=== PATIENT | male | born 1970 | race Caucasian/White ===

== ENCOUNTER 2017-04-13 12:40 | Emergency (ER) | payer MEDICARE, OTHER ==
[~2017-04-13] VITALS: Ht 175.3 cm; Wt 85.9 kg
[~2017-04-13 12:40] MED LIST: CLOZ200T PO; CLOZ25TA4 PO; DIPH50CA4 PO; FLUP10TA2 PO; HALO50VI4 IM; TRAZ150T79 PO; ZOLP10TA7 PO
[2017-04-13 12:58] LABS: GLUCOSE,POINT OF CARE 94 MG/DL (70-110)
[2017-04-13] MEDS ORDERED: PALI546S IM (13:37)
[2017-04-13] MEDS ORDERED: LISI-661 PO (13:37)
[2017-04-13] MEDS ORDERED: METF500T4 PO (13:37)
[2017-04-13] MEDS ORDERED: CLON.2 PO (13:37)
[2017-04-13] MEDS ORDERED: [UNRECOGNIZED DRUG - CODE] PO (13:37)
[2017-04-13] MEDS ORDERED: OMEG-135 PO (13:37)
[2017-04-13] MEDS ORDERED: METO-558 PO (13:37)
[2017-04-13] MEDS ORDERED: VARE1TAB22 PO (13:37)
[2017-04-13 14:26] LABS: BASOPHILS % (AUTO) 0.3 % (0.0-2.0); EOSINOPHILS % (AUTO) 0 % (1.0-6.0); HEMOGLOBIN 13.4 g/dL (13.5-17.5); LYMPHOCYTES # (AUTO) 1.8 K/uL (1.0-4.8); LYMPHOCYTES % (AUTO) 12.6 % (22.0-44.0); MEAN CORPUSCULAR HEMOGLOBIN 30.8 pg (26.0-34.0); MEAN CORPUSCULAR HGB CONC 34.3 G/dL (31.0-37.0); MEAN CORPUSCULAR VOLUME 90 fL (80-100); MONOCYTES # (AUTO) 1.2 K/uL (0.1-1.0); MONOCYTES % (AUTO) 8.8 % (2.0-9.0); NEUTROPHILS % (AUTO) 78.3 % (40.0-70.0); PLATELET COUNT (AUTO) 335 K/uL (150-450); RED BLOOD CELL COUNT(AUTO) 4.34 MIL/uL (4.50-5.90); RED CELL DISTRIBUTION WIDTH 13.9 % (11.5-14.5)
[2017-04-13 14:34] LABS: ANION GAP 12 mmol/L (8-16); CALCIUM, TOTAL 9.3 mg/dL (8.8-10.5); CARBON DIOXIDE 25 mmol/L (22-29); CHLORIDE 102 mmol/L (98-107); CREATININE 0.75 mg/dL (0.60-1.30); GLOMERULAR FILTR. RATE CALC > 60 mL/min (>60); GLUCOSE,RANDOM 99 mg/dL (70-110); POTASSIUM 3.6 mmol/L (3.5-5.1); SODIUM SERUM 139 mmol/L (136-145); UREA NITROGEN, BLOOD 17 mg/dL (7-18)
[2017-04-13 14:40] LABS: ALANINE AMINOTRANSFERASE 30 U/L (12-78); ALBUMIN 3.9 g/dL (3.4-5.0); ALKALINE PHOSPHATASE 87 U/L (46-116); ASPARTATE AMINOTRANSFERASE 24 U/L (15-37); BILIRUBIN,TOTAL 0.8 mg/dL (0.1-1.0); TOTAL PROTEIN, SERUM 7.1 g/dL (6.4-8.2)
[2017-04-13] MEDS ORDERED: HALOPERIDOL 5 MG TABLET PO ONE (15:00)
[2017-04-13] MEDS ORDERED: LORazepam 2 MG TABLET PO ONE (15:00)
[2017-04-13 16:27] VITALS: BP 132/90
[2017-04-13 17:39] LABS: AMPHET/METH SCREEN,URINE NEGATIVE (NEGATIVE); BARBITURATE SCREEN, URINE NEGATIVE (NEGATIVE); BENZODIAZEPINES SCREEN,URINE NEGATIVE (NEGATIVE); CANNABINOID SCREEN,URINE NEGATIVE (NEGATIVE); COCAINE SCREEN,URINE NEGATIVE (NEGATIVE); METHADONE SCREEN, URINE NEGATIVE (NEGATIVE); OPIATE SCREEN,URINE NEGATIVE (NEGATIVE)
[2017-04-13 17:41] LABS: PHENCYCLIDINE SCREEN,URINE NEGATIVE (NEGATIVE)
== END 2017-04-13 18:12 | disposition home or self-care (01) ==
LOC: EMS 12:41
DX: F41.9 Anxiety disorder, unspecified (principal); F90.9 Attention-deficit hyperactivity disorder, unspecified type; F20.9 Schizophrenia, unspecified; E11.9 Type 2 diabetes mellitus without complications; I10 Essential (primary) hypertension
CPT/HCPCS: 36415; 80053; 80307; 82962; 85025; 99284; G0480

== ENCOUNTER 2017-04-14 11:37 | Inpatient (IN) | payer MEDICARE, MEDICAID ==
[~2017-04-14] VITALS: Ht 170.2 cm; Wt 79.8 kg
[~2017-04-14 11:37] MED LIST changes: +CLON.2 PO; +LISI-661 PO; +METF500T4 PO; +METO-558 PO; +OMEG-135 PO; +PALI546S IM; +VARE1TAB22 PO; +[UNRECOGNIZED DRUG - CODE] PO
[2017-04-14 12:32] LABS: BASOPHILS % (AUTO) 0.2 % (0.0-2.0); EOSINOPHILS % (AUTO) 0 % (1.0-6.0); HEMATOCRIT 40.9 % (41-53); HEMOGLOBIN 13.9 g/dL (13.5-17.5); LYMPHOCYTES # (AUTO) 1.4 K/uL (1.0-4.8); LYMPHOCYTES % (AUTO) 7.4 % (22.0-44.0); MEAN CORPUSCULAR HEMOGLOBIN 30.7 pg (26.0-34.0); MEAN CORPUSCULAR HGB CONC 33.9 G/dL (31.0-37.0); MEAN CORPUSCULAR VOLUME 90 fL (80-100); MONOCYTES # (AUTO) 1.1 K/uL (0.1-1.0); MONOCYTES % (AUTO) 5.8 % (2.0-9.0); NEUTROPHILS # (AUTO) 16.8 K/uL (1.8-7.7); NEUTROPHILS % (AUTO) 86.6 % (40.0-70.0); PLATELET COUNT (AUTO) 384 K/uL (150-450); RED BLOOD CELL COUNT(AUTO) 4.53 MIL/uL (4.50-5.90)
[2017-04-14 12:38] LABS: ANION GAP 12 mmol/L (8-16); CALCIUM, TOTAL 9.5 mg/dL (8.8-10.5); CARBON DIOXIDE 25 mmol/L (22-29); CHLORIDE 102 mmol/L (98-107); CREATININE 0.91 mg/dL (0.60-1.30); GLOMERULAR FILTR. RATE CALC > 60 mL/min (>60); GLUCOSE,RANDOM 127 mg/dL (70-110); POTASSIUM 3.9 mmol/L (3.5-5.1); SODIUM SERUM 139 mmol/L (136-145); UREA NITROGEN, BLOOD 26 mg/dL (7-18)
[2017-04-14 12:38] LABS: GLUCOSE,POINT OF CARE 112 MG/DL (70-110)
[2017-04-14 12:45] LABS: ALANINE AMINOTRANSFERASE 30 U/L (12-78); ALBUMIN 4.2 g/dL (3.4-5.0); ALKALINE PHOSPHATASE 94 U/L (46-116); ASPARTATE AMINOTRANSFERASE 22 U/L (15-37); BILIRUBIN,TOTAL 0.8 mg/dL (0.1-1.0); TOTAL PROTEIN, SERUM 7.8 g/dL (6.4-8.2)
[2017-04-14 15:52] LABS: AMPHET/METH SCREEN,URINE NEGATIVE (NEGATIVE); BARBITURATE SCREEN, URINE NEGATIVE (NEGATIVE); BENZODIAZEPINES SCREEN,URINE NEGATIVE (NEGATIVE); CANNABINOID SCREEN,URINE NEGATIVE (NEGATIVE); COCAINE SCREEN,URINE NEGATIVE (NEGATIVE); METHADONE SCREEN, URINE NEGATIVE (NEGATIVE); OPIATE SCREEN,URINE NEGATIVE (NEGATIVE)
[2017-04-14 15:58] LABS: PHENCYCLIDINE SCREEN,URINE NEGATIVE (NEGATIVE)
[2017-04-14 17:19] LABS: APPEARANCE,URINE CLEAR (CLEAR); GLUCOSE, URINE (UA) NEGATIVE (NEGATIVE); KETONES,URINE 40 mg/dL (NEGATIVE); LEUKOCYTE ESTERASE ,URINE NEGATIVE (NEGATIVE); NITRATE,URINE NEGATIVE (NEGATIVE); OCCULT BLOOD,URINE NEGATIVE (NEGATIVE); PROTEIN,URINE TRACE (NEGATIVE)
[2017-04-14 17:21] LABS: BILIRUBIN,URINE PRELIM. POSITIVE (NEGATIVE)
[2017-04-14] MEDS ORDERED: CefTRIAXone SODIUM 2 GM in DEXTROSE 5%-WATER 20 ML IV ONE (17:45)
[2017-04-14] MEDS ORDERED: SODIUM CHLORIDE 0.9% 1,000 ML IV ONE (17:45)
[2017-04-14 21:01] VITALS: BP 134/85
[2017-04-14] MEDS ORDERED: IBUPROFEN 600 MG TABLET PO PRN (21:45)
[2017-04-14] MEDS: CloZAPine 100 MG TABLET PO SCH (22:36)
[2017-04-14] MEDS: DiphenhydrAMINE HCL 25 MG CAPSULE PO SCH (22:36)
[2017-04-14] MEDS: TraZODone HCL 100 MG TABLET PO SCH (22:36)
[2017-04-14] MEDS ORDERED: INFLUENZA VIRUS VACCINE QVS 2017-18 (3YR+)/PF 60 MCG/0.5 ML SYRINGE IM ONE (22:45)
[2017-04-14] MEDS ORDERED: PNEUMOCOCCAL VACCINE POLYVALENT 0.5 ML VIAL [PPSV23] IM ONE (22:45)
[2017-04-15] MEDS ORDERED: GLUCAGON,HUMAN RECOMBINANT 1 MG VIAL IM PRN (05:00)
[2017-04-15 06:22] LABS: GLUCOMETER DEV NAME(LOC) BV2S; GLUCOSE,POINT OF CARE 127 MG/DL (70-110)
[2017-04-15 06:38] VITALS: BP 128/78
[2017-04-15] MEDS: MetFORMIN HCL 500 MG TABLET PO SCH ×2 (07:03→16:47)
[2017-04-15] MEDS: LISINOPRIL 10 MG TABLET PO SCH (08:10)
[2017-04-15] MEDS: OMEGA-3/DHA/EPA/FISH OIL 1,000 MG CAPSULE PO SCH (08:10)
[2017-04-15] MEDS: METOPROLOL SUCCINATE 50 MG ER TABLET PO SCH (08:10)
[2017-04-15] MEDS: NICOTINE 21 MG/24 HOUR PATCH TD SCH (08:11)
[2017-04-15 08:27] LABS: BASOPHILS % (AUTO) 0.3 % (0.0-2.0); EOSINOPHILS % (AUTO) 0.1 % (1.0-6.0); HEMATOCRIT 40.5 % (41-53); HEMOGLOBIN 13.8 g/dL (13.5-17.5); LYMPHOCYTES # (AUTO) 1.6 K/uL (1.0-4.8); LYMPHOCYTES % (AUTO) 15.7 % (22.0-44.0); MEAN CORPUSCULAR HGB CONC 34.2 G/dL (31.0-37.0); MEAN CORPUSCULAR VOLUME 91 fL (80-100); MONOCYTES # (AUTO) 0.8 K/uL (0.1-1.0); MONOCYTES % (AUTO) 8.3 % (2.0-9.0); NEUTROPHILS # (AUTO) 7.5 K/uL (1.8-7.7); NEUTROPHILS % (AUTO) 75.6 % (40.0-70.0); PLATELET COUNT (AUTO) 343 K/uL (150-450); RED BLOOD CELL COUNT(AUTO) 4.47 MIL/uL (4.50-5.90); RED CELL DISTRIBUTION WIDTH 13.9 % (11.5-14.5)
[2017-04-15 08:28] LABS: HEMOGLOBIN A1C 5.5 % (4.5-6.2)
[2017-04-15 08:34] LABS: FREE T4 (FREE THYROXINE) 1.55 ng/dL (0.76-1.46); THYROID STIMULATING HORMONE 1.22 uIU/mL (0.36-3.74)
[2017-04-15] MEDS ORDERED: PALIPERIDONE PALMITATE 234 MG/1.5 ML SYRINGE IM ONE (09:00)
[2017-04-15 11:46] VITALS: BP 110/60
[2017-04-15 16:06] VITALS: BP 124/83
[2017-04-15 16:27] LABS: GLUCOMETER DEV NAME(LOC) BV2S; GLUCOSE,POINT OF CARE 155 MG/DL (70-110)
[2017-04-15] MEDS: INSULIN ASPART 100 UNITS/ML SQ PRN (16:56)
[2017-04-15] MEDS: DiphenhydrAMINE HCL 25 MG CAPSULE PO SCH (20:31)
[2017-04-15] MEDS: CloZAPine 100 MG TABLET PO SCH (20:31)
[2017-04-15] MEDS: TraZODone HCL 100 MG TABLET PO SCH (20:31)
[2017-04-15] MEDS: ZOLPIDEM TARTRATE 10 MG TABLET PO PRN (22:15)
[2017-04-16 03:05] VITALS: BP 125/89
[2017-04-16] MEDS: LORazepam 2 MG TABLET PO PRN (03:09)
[2017-04-16 07:03] LABS: GLUCOMETER DEV NAME(LOC) BV2S; GLUCOSE,POINT OF CARE 110 MG/DL (70-110)
[2017-04-16] MEDS: MetFORMIN HCL 500 MG TABLET PO SCH ×2 (07:05→16:42)
[2017-04-16 08:09] VITALS: BP 140/70
[2017-04-16] MEDS: NICOTINE 21 MG/24 HOUR PATCH TD SCH (08:28)
[2017-04-16] MEDS: METOPROLOL SUCCINATE 50 MG ER TABLET PO SCH (08:28)
[2017-04-16] MEDS: LISINOPRIL 10 MG TABLET PO SCH (08:28)
[2017-04-16] MEDS: OMEGA-3/DHA/EPA/FISH OIL 1,000 MG CAPSULE PO SCH (08:32)
[2017-04-16] MEDS ORDERED: HALOPERIDOL LACTATE 5 MG/ML VIAL IM ONE (11:00)
[2017-04-16] MEDS ORDERED: LORazepam 2 MG/ML VIAL IM ONE (11:00)
[2017-04-16] MEDS ORDERED: DiphenhydrAMINE HCL 50 MG/ML VIAL IM ONE (11:00)
[2017-04-16 13:30] VITALS: BP 112/82
[2017-04-16 16:13] VITALS: BP 112/75
[2017-04-16 16:23] LABS: GLUCOMETER DEV NAME(LOC) BV2S; GLUCOSE,POINT OF CARE 143 MG/DL (70-110)
[2017-04-16] MEDS: CloZAPine 25 MG TABLET PO SCH (16:35)
[2017-04-16] MEDS: INSULIN ASPART 100 UNITS/ML SQ PRN (16:35)
[2017-04-16] MEDS: CloZAPine 100 MG TABLET PO SCH (20:31)
[2017-04-16] MEDS: DiphenhydrAMINE HCL 25 MG CAPSULE PO SCH (20:31)
[2017-04-16] MEDS: TraZODone HCL 100 MG TABLET PO SCH (20:31)
[2017-04-16] MEDS: ZOLPIDEM TARTRATE 10 MG TABLET PO PRN (21:37)
[2017-04-17] MEDS: LORazepam 2 MG TABLET PO PRN ×2 (00:55→10:37)
[2017-04-17] MEDS: HALOPERIDOL 5 MG TABLET PO PRN (01:04)
[2017-04-17] MEDS ORDERED: LORazepam 2 MG/ML VIAL ONE (01:26)
[2017-04-17] MEDS ORDERED: DiphenhydrAMINE HCL 50 MG/ML VIAL ONE (01:26)
[2017-04-17 01:30] VITALS: BP 140/89
[2017-04-17] MEDS ORDERED: DiphenhydrAMINE HCL 50 MG/ML VIAL IM ONE (01:30)
[2017-04-17] MEDS ORDERED: LORazepam 2 MG/ML VIAL IM ONE (01:30)
[2017-04-17] MEDS ORDERED: HALOPERIDOL LACTATE 5 MG/ML VIAL IM ONE (01:30)
[2017-04-17 02:30] VITALS: BP 121/73
[2017-04-17] MEDS: MetFORMIN HCL 500 MG TABLET PO SCH (07:00)
[2017-04-17 07:02] LABS: GLUCOMETER DEV NAME(LOC) BV2S; GLUCOSE,POINT OF CARE 116 MG/DL (70-110)
[2017-04-17 08:14] VITALS: BP 129/94
[2017-04-17] MEDS: LISINOPRIL 10 MG TABLET PO SCH (09:13)
[2017-04-17] MEDS: METOPROLOL SUCCINATE 50 MG ER TABLET PO SCH (09:13)
[2017-04-17] MEDS: OMEGA-3/DHA/EPA/FISH OIL 1,000 MG CAPSULE PO SCH (09:13)
[2017-04-17] MEDS: CloZAPine 25 MG TABLET PO SCH ×2 (09:13→16:35)
[2017-04-17] MEDS: NICOTINE 21 MG/24 HOUR PATCH TD SCH (09:14)
[2017-04-17 16:22] VITALS: BP 122/83
[2017-04-17 16:22] LABS: GLUCOMETER DEV NAME(LOC) BV2S; GLUCOSE,POINT OF CARE 132 MG/DL (70-110)
[2017-04-17] MEDS: CloZAPine 100 MG TABLET PO SCH (20:30)
[2017-04-17] MEDS: DiphenhydrAMINE HCL 25 MG CAPSULE PO SCH (20:30)
[2017-04-17] MEDS: TraZODone HCL 100 MG TABLET PO SCH (20:30)
[2017-04-17] MEDS: ZOLPIDEM TARTRATE 10 MG TABLET PO PRN (21:08)
[2017-04-18 06:41] VITALS: BP 104/72
[2017-04-18 06:53] LABS: GLUCOMETER DEV NAME(LOC) BV2S; GLUCOSE,POINT OF CARE 127 MG/DL (70-110)
[2017-04-18] MEDS: MetFORMIN HCL 500 MG TABLET PO SCH (07:02)
[2017-04-18 08:37] LABS: BASOPHILS % (AUTO) 0.6 % (0.0-2.0); EOSINOPHILS % (AUTO) 0.1 % (1.0-6.0); HEMATOCRIT 38.7 % (41-53); HEMOGLOBIN 13.3 g/dL (13.5-17.5); LYMPHOCYTES # (AUTO) 1.3 K/uL (1.0-4.8); LYMPHOCYTES % (AUTO) 15.9 % (22.0-44.0); MEAN CORPUSCULAR HGB CONC 34.2 G/dL (31.0-37.0); MEAN CORPUSCULAR VOLUME 91 fL (80-100); MONOCYTES # (AUTO) 0.7 K/uL (0.1-1.0); MONOCYTES % (AUTO) 8.7 % (2.0-9.0); NEUTROPHILS % (AUTO) 74.7 % (40.0-70.0); PLATELET COUNT (AUTO) 319 K/uL (150-450); RED BLOOD CELL COUNT(AUTO) 4.27 MIL/uL (4.50-5.90); RED CELL DISTRIBUTION WIDTH 13.7 % (11.5-14.5)
[2017-04-18 08:45] VITALS: BP 132/80
[2017-04-18] MEDS: NICOTINE 21 MG/24 HOUR PATCH TD SCH (08:47)
[2017-04-18] MEDS: LISINOPRIL 10 MG TABLET PO SCH (08:47)
[2017-04-18] MEDS: METOPROLOL SUCCINATE 50 MG ER TABLET PO SCH (08:47)
[2017-04-18] MEDS: OMEGA-3/DHA/EPA/FISH OIL 1,000 MG CAPSULE PO SCH (08:47)
[2017-04-18] MEDS: CloZAPine 25 MG TABLET PO SCH ×2 (08:47→16:36)
[2017-04-18 09:16] LABS: ALANINE AMINOTRANSFERASE 45 U/L (12-78); ALBUMIN 3.7 g/dL (3.4-5.0); ALKALINE PHOSPHATASE 84 U/L (46-116); ANION GAP 9 mmol/L (8-16); ASPARTATE AMINOTRANSFERASE 47 U/L (15-37); BILIRUBIN,TOTAL 0.6 mg/dL (0.1-1.0); CALCIUM, TOTAL 9.1 mg/dL (8.8-10.5); CARBON DIOXIDE 28 mmol/L (22-29); CHLORIDE 102 mmol/L (98-107); CREATINE KINASE MB 3.3 ng/mL (0-5); CREATINE KINASE, TOTAL 813 U/L (39-308); CREATININE 0.76 mg/dL (0.60-1.30); FREE T4 (FREE THYROXINE) 1.57 ng/dL (0.76-1.46); GLOMERULAR FILTR. RATE CALC > 60 mL/min (>60); GLUCOSE,RANDOM 124 mg/dL (70-110); POTASSIUM 4.1 mmol/L (3.5-5.1); SODIUM SERUM 139 mmol/L (136-145); THYROID STIMULATING HORMONE 1.33 uIU/mL (0.36-3.74); TOTAL PROTEIN, SERUM 7.1 g/dL (6.4-8.2); UREA NITROGEN, BLOOD 19 mg/dL (7-18)
[2017-04-18 09:57] LABS: FOLATE SERUM 8.1 ng/mL (5.4-)
[2017-04-18 11:59] VITALS: BP 124/78
[2017-04-18] MEDS: ACETAMINOPHEN 325 MG TABLET PO PRN (11:59)
[2017-04-18] MEDS: LORazepam 2 MG TABLET PO PRN (14:49)
[2017-04-18 16:17] VITALS: BP 115/60
[2017-04-18 16:27] LABS: GLUCOMETER DEV NAME(LOC) BV2S; GLUCOSE,POINT OF CARE 109 MG/DL (70-110)
[2017-04-18] MEDS: TraZODone HCL 100 MG TABLET PO SCH (20:33)
[2017-04-18] MEDS: DiphenhydrAMINE HCL 25 MG CAPSULE PO SCH (20:33)
[2017-04-18] MEDS: CloZAPine 100 MG TABLET PO SCH (20:33)
[2017-04-19 06:10] VITALS: BP 120/64
[2017-04-19 06:28] LABS: GLUCOMETER DEV NAME(LOC) BV2S; GLUCOSE,POINT OF CARE 110 MG/DL (70-110)
[2017-04-19] MEDS: MetFORMIN HCL 500 MG TABLET PO SCH (07:12)
[2017-04-19 08:22] VITALS: BP 124/71
[2017-04-19] MEDS: LISINOPRIL 10 MG TABLET PO SCH (08:38)
[2017-04-19] MEDS: CloZAPine 25 MG TABLET PO SCH ×2 (08:38→16:31)
[2017-04-19] MEDS: METOPROLOL SUCCINATE 50 MG ER TABLET PO SCH (08:39)
[2017-04-19] MEDS: OMEGA-3/DHA/EPA/FISH OIL 1,000 MG CAPSULE PO SCH (08:39)
[2017-04-19] MEDS: LITHIUM CARBONATE 300 MG CAPSULE PO SCH ×2 (08:39→16:29)
[2017-04-19] MEDS: NICOTINE 21 MG/24 HOUR PATCH TD SCH (08:39)
[2017-04-19] MEDS: LORazepam 2 MG TABLET PO PRN (11:21)
[2017-04-19] MEDS: HALOPERIDOL 5 MG TABLET PO PRN (11:21)
[2017-04-19 16:05] VITALS: BP 119/74
[2017-04-19 16:48] LABS: GLUCOMETER DEV NAME(LOC) BV2S; GLUCOSE,POINT OF CARE 118 MG/DL (70-110)
[2017-04-19] MEDS: CloZAPine 100 MG TABLET PO SCH (20:30)
[2017-04-19] MEDS: DiphenhydrAMINE HCL 25 MG CAPSULE PO SCH (20:31)
[2017-04-19] MEDS: TraZODone HCL 100 MG TABLET PO SCH (20:31)
[2017-04-20 00:19] VITALS: BP 123/78
[2017-04-20] MEDS: LORazepam 2 MG TABLET PO PRN ×3 (00:20→12:17)
[2017-04-20] MEDS: HALOPERIDOL 5 MG TABLET PO PRN ×3 (00:20→12:17)
[2017-04-20] MEDS: ZOLPIDEM TARTRATE 10 MG TABLET PO PRN (00:20)
[2017-04-20] MEDS: MetFORMIN HCL 500 MG TABLET PO SCH (06:44)
[2017-04-20 06:58] LABS: GLUCOMETER DEV NAME(LOC) BV2S; GLUCOSE,POINT OF CARE 116 MG/DL (70-110)
[2017-04-20 08:34] VITALS: BP 107/74
[2017-04-20] MEDS: LISINOPRIL 10 MG TABLET PO SCH (09:07)
[2017-04-20] MEDS: NICOTINE 21 MG/24 HOUR PATCH TD SCH (09:08)
[2017-04-20] MEDS: METOPROLOL SUCCINATE 50 MG ER TABLET PO SCH (09:08)
[2017-04-20] MEDS: CloZAPine 25 MG TABLET PO SCH ×2 (09:08→16:36)
[2017-04-20] MEDS: LITHIUM CARBONATE 300 MG CAPSULE PO SCH ×2 (09:08→16:36)
[2017-04-20] MEDS: OMEGA-3/DHA/EPA/FISH OIL 1,000 MG CAPSULE PO SCH (09:08)
[2017-04-20 16:21] VITALS: BP 136/94
[2017-04-20 17:23] LABS: GLUCOMETER DEV NAME(LOC) BV2S; GLUCOSE,POINT OF CARE 120 MG/DL (70-110)
[2017-04-20] MEDS: CloZAPine 100 MG TABLET PO SCH (20:40)
[2017-04-20] MEDS: DiphenhydrAMINE HCL 25 MG CAPSULE PO SCH (20:40)
[2017-04-20] MEDS: TraZODone HCL 100 MG TABLET PO SCH (20:41)
[2017-04-21 06:33] LABS: GLUCOMETER DEV NAME(LOC) BV2S; GLUCOSE,POINT OF CARE 101 MG/DL (70-110)
[2017-04-21] MEDS: MetFORMIN HCL 500 MG TABLET PO SCH (06:46)
[2017-04-21 06:51] VITALS: BP 114/68
[2017-04-21] MEDS: LISINOPRIL 10 MG TABLET PO SCH (08:18)
[2017-04-21] MEDS: CloZAPine 25 MG TABLET PO SCH ×2 (08:18→16:37)
[2017-04-21] MEDS: OMEGA-3/DHA/EPA/FISH OIL 1,000 MG CAPSULE PO SCH (08:18)
[2017-04-21] MEDS: METOPROLOL SUCCINATE 50 MG ER TABLET PO SCH (08:18)
[2017-04-21] MEDS: NICOTINE 21 MG/24 HOUR PATCH TD SCH (08:18)
[2017-04-21] MEDS: LITHIUM CARBONATE 300 MG CAPSULE PO SCH ×2 (08:18→16:37)
[2017-04-21 08:22] LABS: BASOPHILS % (AUTO) 0.7 % (0.0-2.0); EOSINOPHILS % (AUTO) 0.1 % (1.0-6.0); HEMATOCRIT 41.8 % (41-53); HEMOGLOBIN 14.2 g/dL (13.5-17.5); LYMPHOCYTES # (AUTO) 1.7 K/uL (1.0-4.8); LYMPHOCYTES % (AUTO) 16.1 % (22.0-44.0); MEAN CORPUSCULAR HEMOGLOBIN 30.9 pg (26.0-34.0); MEAN CORPUSCULAR HGB CONC 33.9 G/dL (31.0-37.0); MEAN CORPUSCULAR VOLUME 91 fL (80-100); MONOCYTES # (AUTO) 0.8 K/uL (0.1-1.0); MONOCYTES % (AUTO) 7.9 % (2.0-9.0); NEUTROPHILS # (AUTO) 7.8 K/uL (1.8-7.7); NEUTROPHILS % (AUTO) 75.2 % (40.0-70.0); PLATELET COUNT (AUTO) 357 K/uL (150-450); RED BLOOD CELL COUNT(AUTO) 4.58 MIL/uL (4.50-5.90); RED CELL DISTRIBUTION WIDTH 13.7 % (11.5-14.5)
[2017-04-21] MEDS: LORazepam 2 MG TABLET PO PRN ×2 (08:22→18:37)
[2017-04-21 08:36] VITALS: BP 140/73
[2017-04-21 08:43] LABS: LITHIUM 0.38 mmol/L (0.60-1.20)
[2017-04-21 08:50] LABS: ALANINE AMINOTRANSFERASE 47 U/L (12-78); ALBUMIN 4.1 g/dL (3.4-5.0); ALKALINE PHOSPHATASE 86 U/L (46-116); ANION GAP 8 mmol/L (8-16); ASPARTATE AMINOTRANSFERASE 25 U/L (15-37); BILIRUBIN,TOTAL 0.5 mg/dL (0.1-1.0); CALCIUM, TOTAL 9.4 mg/dL (8.8-10.5); CARBON DIOXIDE 28 mmol/L (22-29); CHLORIDE 100 mmol/L (98-107); CREATININE 0.87 mg/dL (0.60-1.30); GLOMERULAR FILTR. RATE CALC > 60 mL/min (>60); GLUCOSE,RANDOM 130 mg/dL (70-110); POTASSIUM 4.1 mmol/L (3.5-5.1); SODIUM SERUM 136 mmol/L (136-145); THYROID STIMULATING HORMONE 2.56 uIU/mL (0.36-3.74); TOTAL PROTEIN, SERUM 7.6 g/dL (6.4-8.2); UREA NITROGEN, BLOOD 26 mg/dL (7-18)
[2017-04-21 16:00] VITALS: BP 117/73
[2017-04-21] MEDS: TraZODone HCL 100 MG TABLET PO SCH (20:39)
[2017-04-21] MEDS: DiphenhydrAMINE HCL 25 MG CAPSULE PO SCH (20:39)
[2017-04-21] MEDS: CloZAPine 100 MG TABLET PO SCH (20:39)
[2017-04-21 21:23] LABS: GLUCOMETER DEV NAME(LOC) BV2S; GLUCOSE,POINT OF CARE 101 MG/DL (70-110)
[2017-04-22 05:07] VITALS: BP 109/75
[2017-04-22 06:18] LABS: GLUCOMETER DEV NAME(LOC) BV2S; GLUCOSE,POINT OF CARE 130 MG/DL (70-110)
[2017-04-22] MEDS: MetFORMIN HCL 500 MG TABLET PO SCH (06:28)
[2017-04-22 08:35] VITALS: BP 114/78
[2017-04-22] MEDS: OMEGA-3/DHA/EPA/FISH OIL 1,000 MG CAPSULE PO SCH (08:37)
[2017-04-22] MEDS: CloZAPine 25 MG TABLET PO SCH ×2 (08:37→16:37)
[2017-04-22] MEDS: NICOTINE 21 MG/24 HOUR PATCH TD SCH (08:37)
[2017-04-22] MEDS: METOPROLOL SUCCINATE 50 MG ER TABLET PO SCH (08:37)
[2017-04-22] MEDS: LITHIUM CARBONATE 300 MG CAPSULE PO SCH ×2 (08:37→16:37)
[2017-04-22] MEDS: LISINOPRIL 10 MG TABLET PO SCH (08:37)
[2017-04-22 09:43] LABS: CREATINE KINASE MB 0.7 ng/mL (0-5); CREATINE KINASE, TOTAL 80 U/L (39-308)
[2017-04-22 16:14] VITALS: BP 116/75
[2017-04-22 16:32] LABS: GLUCOMETER DEV NAME(LOC) BV2S; GLUCOSE,POINT OF CARE 114 MG/DL (70-110)
[2017-04-22] MEDS: DiphenhydrAMINE HCL 25 MG CAPSULE PO SCH (20:32)
[2017-04-22] MEDS: TraZODone HCL 100 MG TABLET PO SCH (20:32)
[2017-04-22] MEDS: CloZAPine 100 MG TABLET PO SCH (20:33)
[2017-04-23 00:03] VITALS: BP 125/75
[2017-04-23] MEDS: ZOLPIDEM TARTRATE 10 MG TABLET PO PRN (00:08)
[2017-04-23] MEDS: HALOPERIDOL 5 MG TABLET PO PRN (00:08)
[2017-04-23] MEDS: LORazepam 2 MG TABLET PO PRN (00:08)
[2017-04-23 06:34] LABS: GLUCOMETER DEV NAME(LOC) BV2S; GLUCOSE,POINT OF CARE 121 MG/DL (70-110)
[2017-04-23] MEDS: MetFORMIN HCL 500 MG TABLET PO SCH (07:04)
[2017-04-23 08:18] VITALS: BP 122/74
[2017-04-23] MEDS: OMEGA-3/DHA/EPA/FISH OIL 1,000 MG CAPSULE PO SCH (08:18)
[2017-04-23] MEDS: CloZAPine 25 MG TABLET PO SCH ×2 (08:18→16:34)
[2017-04-23] MEDS: METOPROLOL SUCCINATE 50 MG ER TABLET PO SCH (08:18)
[2017-04-23] MEDS: LITHIUM CARBONATE 300 MG CAPSULE PO SCH (08:18)
[2017-04-23] MEDS: LISINOPRIL 10 MG TABLET PO SCH (08:18)
[2017-04-23] MEDS: NICOTINE 21 MG/24 HOUR PATCH TD SCH (08:19)
[2017-04-23] MEDS ORDERED: LITH300C3 PO (10:11)
[2017-04-23] MEDS ORDERED: CLOZ25TA PO (10:11)
[2017-04-23] MEDS ORDERED: TRAZ-147 PO (10:14)
[2017-04-23] MEDS ORDERED: CLOZ100 PO (10:14)
[2017-04-23] MEDS ORDERED: METF500T PO (10:15)
[2017-04-23] MEDS ORDERED: OMEG-135 PO (10:16)
[2017-04-23] MEDS ORDERED: METO25TA3 PO (10:17)
[2017-04-23] MEDS ORDERED: NICO-704 TD (10:18)
[2017-04-23] MEDS ORDERED: LISI-661 PO (10:18)
[2017-04-23] MEDS ORDERED: DIPH25CA85 PO (10:19)
[2017-04-23 16:06] VITALS: BP 126/63
[2017-04-23 16:22] LABS: GLUCOMETER DEV NAME(LOC) BV2S; GLUCOSE,POINT OF CARE 101 MG/DL (70-110)
[2017-04-23] MEDS: LITHIUM CARBONATE 300 MG TABLET PO SCH (16:34)
[2017-04-23] MEDS: DiphenhydrAMINE HCL 25 MG CAPSULE PO SCH (20:36)
[2017-04-23] MEDS: TraZODone HCL 100 MG TABLET PO SCH (20:38)
[2017-04-23] MEDS: CloZAPine 100 MG TABLET PO SCH (20:38)
[2017-04-24 00:47] VITALS: BP 101/68
[2017-04-24] MEDS: ZOLPIDEM TARTRATE 10 MG TABLET PO PRN (00:48)
[2017-04-24] MEDS: LORazepam 2 MG TABLET PO PRN ×2 (01:05→08:46)
[2017-04-24] MEDS: HALOPERIDOL 5 MG TABLET PO PRN (01:05)
[2017-04-24 05:19] VITALS: BP 121/76
[2017-04-24] MEDS: ACETAMINOPHEN 325 MG TABLET PO PRN (05:21)
[2017-04-24 06:22] LABS: GLUCOMETER DEV NAME(LOC) BV2S; GLUCOSE,POINT OF CARE 238 MG/DL (70-110)
[2017-04-24] MEDS: INSULIN ASPART 100 UNITS/ML SQ PRN ×2 (07:04→18:46)
[2017-04-24] MEDS: MetFORMIN HCL 500 MG TABLET PO SCH (07:35)
[2017-04-24 08:10] VITALS: BP 118/74
[2017-04-24] MEDS: OMEGA-3/DHA/EPA/FISH OIL 1,000 MG CAPSULE PO SCH (08:31)
[2017-04-24] MEDS: LISINOPRIL 10 MG TABLET PO SCH (08:31)
[2017-04-24] MEDS: CloZAPine 25 MG TABLET PO SCH ×2 (08:31→16:33)
[2017-04-24] MEDS: LITHIUM CARBONATE 300 MG TABLET PO SCH ×2 (08:31→16:33)
[2017-04-24] MEDS: METOPROLOL SUCCINATE 50 MG ER TABLET PO SCH (08:31)
[2017-04-24] MEDS: NICOTINE 21 MG/24 HOUR PATCH TD SCH (08:34)
[2017-04-24 09:32] VITALS: BP 125/69
[2017-04-24 11:59] VITALS: BP 114/76
[2017-04-24 16:07] VITALS: BP 120/60
[2017-04-24 18:42] LABS: GLUCOMETER DEV NAME(LOC) BV2S; GLUCOSE,POINT OF CARE 154 MG/DL (70-110)
[2017-04-24] MEDS: CloZAPine 100 MG TABLET PO SCH (20:33)
[2017-04-24] MEDS: DiphenhydrAMINE HCL 25 MG CAPSULE PO SCH (20:33)
[2017-04-24] MEDS: TraZODone HCL 100 MG TABLET PO SCH (20:34)
[2017-04-25 06:32] LABS: GLUCOMETER DEV NAME(LOC) BV2S; GLUCOSE,POINT OF CARE 130 MG/DL (70-110)
[2017-04-25 06:34] VITALS: BP 122/60
[2017-04-25] MEDS: MetFORMIN HCL 500 MG TABLET PO SCH (06:42)
[2017-04-25 08:08] LABS: BASOPHILS % (AUTO) 0.6 % (0.0-2.0); EOSINOPHILS % (AUTO) 0.1 % (1.0-6.0); HEMATOCRIT 38.3 % (41-53); HEMOGLOBIN 12.9 g/dL (13.5-17.5); LYMPHOCYTES # (AUTO) 1.6 K/uL (1.0-4.8); LYMPHOCYTES % (AUTO) 16.5 % (22.0-44.0); MEAN CORPUSCULAR HEMOGLOBIN 30.7 pg (26.0-34.0); MEAN CORPUSCULAR HGB CONC 33.8 G/dL (31.0-37.0); MEAN CORPUSCULAR VOLUME 91 fL (80-100); MONOCYTES % (AUTO) 9.9 % (2.0-9.0); NEUTROPHILS # (AUTO) 7.2 K/uL (1.8-7.7); NEUTROPHILS % (AUTO) 72.9 % (40.0-70.0); PLATELET COUNT (AUTO) 325 K/uL (150-450); RED CELL DISTRIBUTION WIDTH 13.6 % (11.5-14.5)
[2017-04-25] MEDS: CloZAPine 25 MG TABLET PO SCH ×2 (08:12→16:37)
[2017-04-25] MEDS: OMEGA-3/DHA/EPA/FISH OIL 1,000 MG CAPSULE PO SCH (08:12)
[2017-04-25] MEDS: LISINOPRIL 10 MG TABLET PO SCH (08:12)
[2017-04-25 08:13] VITALS: BP 128/72
[2017-04-25] MEDS: LITHIUM CARBONATE 300 MG TABLET PO SCH ×2 (08:13→16:37)
[2017-04-25] MEDS: METOPROLOL SUCCINATE 50 MG ER TABLET PO SCH (08:13)
[2017-04-25] MEDS: NICOTINE 21 MG/24 HOUR PATCH TD SCH (08:19)
[2017-04-25 16:09] VITALS: BP 115/61
[2017-04-25 16:27] LABS: GLUCOMETER DEV NAME(LOC) BV2S; GLUCOSE,POINT OF CARE 128 MG/DL (70-110)
[2017-04-25] MEDS: DiphenhydrAMINE HCL 25 MG CAPSULE PO SCH (20:30)
[2017-04-25] MEDS: CloZAPine 100 MG TABLET PO SCH (20:30)
[2017-04-25] MEDS: TraZODone HCL 100 MG TABLET PO SCH (20:31)
[2017-04-26 00:20] VITALS: BP 104/70
[2017-04-26] MEDS: MetFORMIN HCL 500 MG TABLET PO SCH (07:06)
[2017-04-26 08:02] VITALS: BP 123/66
[2017-04-26] MEDS: METOPROLOL SUCCINATE 50 MG ER TABLET PO SCH (08:11)
[2017-04-26] MEDS: CloZAPine 25 MG TABLET PO SCH ×2 (08:11→16:42)
[2017-04-26] MEDS: LITHIUM CARBONATE 450 MG ER TABLET PO SCH ×3 (08:11→16:42)
[2017-04-26] MEDS: OMEGA-3/DHA/EPA/FISH OIL 1,000 MG CAPSULE PO SCH (08:11)
[2017-04-26] MEDS: LISINOPRIL 10 MG TABLET PO SCH (08:11)
[2017-04-26] MEDS: NICOTINE 21 MG/24 HOUR PATCH TD SCH (09:00)
[2017-04-26] MEDS: LORazepam 2 MG TABLET PO PRN (14:51)
[2017-04-26 16:21] LABS: GLUCOMETER DEV NAME(LOC) BV2S; GLUCOSE,POINT OF CARE 129 MG/DL (70-110)
[2017-04-26 16:29] VITALS: BP 132/89
[2017-04-26] MEDS: DiphenhydrAMINE HCL 25 MG CAPSULE PO SCH (20:46)
[2017-04-26] MEDS: CloZAPine 100 MG TABLET PO SCH (20:46)
[2017-04-26] MEDS: TraZODone HCL 100 MG TABLET PO SCH (20:46)
[2017-04-26] MEDS: HALOPERIDOL 5 MG TABLET PO PRN (23:44)
[2017-04-26] MEDS: ZOLPIDEM TARTRATE 10 MG TABLET PO PRN (23:44)
[2017-04-27 00:30] VITALS: BP 118/60
[2017-04-27] MEDS: LORazepam 2 MG TABLET PO PRN (01:41)
[2017-04-27] MEDS: MetFORMIN HCL 500 MG TABLET PO SCH (06:46)
[2017-04-27 06:47] LABS: GLUCOMETER DEV NAME(LOC) BV2S; GLUCOSE,POINT OF CARE 135 MG/DL (70-110)
[2017-04-27 08:00] VITALS: BP 118/60
[2017-04-27] MEDS: LITHIUM CARBONATE 450 MG ER TABLET PO SCH ×3 (08:06→17:07)
[2017-04-27] MEDS: METOPROLOL SUCCINATE 50 MG ER TABLET PO SCH (08:06)
[2017-04-27] MEDS: LISINOPRIL 10 MG TABLET PO SCH (08:06)
[2017-04-27] MEDS: CloZAPine 25 MG TABLET PO SCH ×2 (08:07→20:50)
[2017-04-27] MEDS: OMEGA-3/DHA/EPA/FISH OIL 1,000 MG CAPSULE PO SCH (08:07)
[2017-04-27] MEDS: NICOTINE 21 MG/24 HOUR PATCH TD SCH (08:07)
[2017-04-27 16:13] VITALS: BP 132/64
[2017-04-27 16:29] LABS: GLUCOMETER DEV NAME(LOC) BV2S; GLUCOSE,POINT OF CARE 132 MG/DL (70-110)
[2017-04-27] MEDS: TraZODone HCL 100 MG TABLET PO SCH (20:50)
[2017-04-27] MEDS: CloZAPine 100 MG TABLET PO SCH (20:50)
[2017-04-27] MEDS: DiphenhydrAMINE HCL 25 MG CAPSULE PO SCH (20:51)
[2017-04-28] VITALS: BP 112/62
[2017-04-28 06:13] LABS: GLUCOMETER DEV NAME(LOC) BV2S; GLUCOSE,POINT OF CARE 105 MG/DL (70-110)
[2017-04-28] MEDS: MetFORMIN HCL 500 MG TABLET PO SCH (06:39)
[2017-04-28 07:06] LABS: BASOPHILS % (AUTO) 0.7 % (0.0-2.0); EOSINOPHILS % (AUTO) 0.2 % (1.0-6.0); HEMATOCRIT 38.7 % (41-53); HEMOGLOBIN 13.3 g/dL (13.5-17.5); LYMPHOCYTES # (AUTO) 2.2 K/uL (1.0-4.8); LYMPHOCYTES % (AUTO) 16.6 % (22.0-44.0); MEAN CORPUSCULAR HGB CONC 34.3 G/dL (31.0-37.0); MEAN CORPUSCULAR VOLUME 90 fL (80-100); MONOCYTES # (AUTO) 1.3 K/uL (0.1-1.0); MONOCYTES % (AUTO) 9.5 % (2.0-9.0); NEUTROPHILS # (AUTO) 9.7 K/uL (1.8-7.7); PLATELET COUNT (AUTO) 377 K/uL (150-450); RED BLOOD CELL COUNT(AUTO) 4.28 MIL/uL (4.50-5.90); RED CELL DISTRIBUTION WIDTH 12.9 % (11.5-14.5)
[2017-04-28 08:37] VITALS: BP 110/74
[2017-04-28] MEDS: OMEGA-3/DHA/EPA/FISH OIL 1,000 MG CAPSULE PO SCH (08:38)
[2017-04-28] MEDS: METOPROLOL SUCCINATE 50 MG ER TABLET PO SCH (08:38)
[2017-04-28] MEDS: LISINOPRIL 10 MG TABLET PO SCH (08:38)
[2017-04-28] MEDS: CloZAPine 100 MG TABLET PO SCH ×2 (08:38→20:34)
[2017-04-28] MEDS: LITHIUM CARBONATE 450 MG ER TABLET PO SCH ×3 (08:38→16:30)
[2017-04-28] MEDS: NICOTINE 21 MG/24 HOUR PATCH TD SCH (08:38)
[2017-04-28 16:16] VITALS: BP 103/60
[2017-04-28] MEDS: INSULIN ASPART 100 UNITS/ML SQ PRN (16:44)
[2017-04-28] MEDS: TraZODone HCL 100 MG TABLET PO SCH (20:34)
[2017-04-28] MEDS: DiphenhydrAMINE HCL 25 MG CAPSULE PO SCH (20:35)
[2017-04-28] MEDS: CloZAPine 25 MG TABLET PO SCH (20:35)
[2017-04-28] MEDS: LORazepam 2 MG TABLET PO PRN (22:18)
[2017-04-28 22:23] LABS: GLUCOMETER DEV NAME(LOC) BV2S; GLUCOSE,POINT OF CARE 145 MG/DL (70-110)
[2017-04-29 03:07] VITALS: BP 116/60
[2017-04-29 06:03] LABS: GLUCOMETER DEV NAME(LOC) BV2S; GLUCOSE,POINT OF CARE 106 MG/DL (70-110)
[2017-04-29] MEDS: MetFORMIN HCL 500 MG TABLET PO SCH (06:29)
[2017-04-29] MEDS: LISINOPRIL 10 MG TABLET PO SCH (08:37)
[2017-04-29] MEDS: LORazepam 2 MG TABLET PO PRN ×2 (08:38→16:47)
[2017-04-29] MEDS: CloZAPine 100 MG TABLET PO SCH ×2 (08:38→20:31)
[2017-04-29] MEDS: NICOTINE 21 MG/24 HOUR PATCH TD SCH (08:38)
[2017-04-29] MEDS: OMEGA-3/DHA/EPA/FISH OIL 1,000 MG CAPSULE PO SCH (08:38)
[2017-04-29] MEDS: METOPROLOL SUCCINATE 50 MG ER TABLET PO SCH (08:38)
[2017-04-29] MEDS: LITHIUM CARBONATE 450 MG ER TABLET PO SCH ×3 (08:38→16:35)
[2017-04-29 09:14] VITALS: BP 110/76
[2017-04-29 16:05] VITALS: BP 146/71
[2017-04-29 16:12] LABS: GLUCOMETER DEV NAME(LOC) BV2S; GLUCOSE,POINT OF CARE 125 MG/DL (70-110)
[2017-04-29] MEDS: TraZODone HCL 100 MG TABLET PO SCH (20:31)
[2017-04-29] MEDS: DiphenhydrAMINE HCL 25 MG CAPSULE PO SCH (20:31)
[2017-04-29] MEDS: CloZAPine 25 MG TABLET PO SCH (20:31)
[2017-04-30 00:30] VITALS: BP 110/66
[2017-04-30 06:12] LABS: GLUCOMETER DEV NAME(LOC) BV2S; GLUCOSE,POINT OF CARE 121 MG/DL (70-110)
[2017-04-30] MEDS: MetFORMIN HCL 500 MG TABLET PO SCH (06:41)
[2017-04-30] MEDS: LISINOPRIL 10 MG TABLET PO SCH (08:16)
[2017-04-30] MEDS: METOPROLOL SUCCINATE 50 MG ER TABLET PO SCH (08:16)
[2017-04-30] MEDS: CloZAPine 100 MG TABLET PO SCH ×2 (08:16→20:30)
[2017-04-30] MEDS: LITHIUM CARBONATE 450 MG ER TABLET PO SCH ×3 (08:16→16:33)
[2017-04-30] MEDS: NICOTINE 21 MG/24 HOUR PATCH TD SCH (08:16)
[2017-04-30] MEDS: OMEGA-3/DHA/EPA/FISH OIL 1,000 MG CAPSULE PO SCH (08:16)
[2017-04-30 08:38] VITALS: BP 115/72
[2017-04-30] MEDS ORDERED: BISACODYL 5 MG EC TABLET PO PRN (09:00)
[2017-04-30 09:30] LABS: APPEARANCE,URINE CLEAR (CLEAR); BILIRUBIN,URINE NEGATIVE (NEGATIVE); GLUCOSE, URINE (UA) NEGATIVE (NEGATIVE); KETONES,URINE NEGATIVE (NEGATIVE); LEUKOCYTE ESTERASE ,URINE NEGATIVE (NEGATIVE); NITRATE,URINE NEGATIVE (NEGATIVE); OCCULT BLOOD,URINE NEGATIVE (NEGATIVE); PH,URINE 6.5 (5.0-8.0); PROTEIN,URINE NEGATIVE (NEGATIVE)
[2017-04-30 09:31] LABS: BACTERIA,URINE None Seen /HPF (None Seen); RBC,URINE None Seen /HPF (0-2); WBC,URINE None Seen /HPF (0-5)
[2017-04-30] MEDS: LORazepam 2 MG TABLET PO PRN ×2 (12:23→22:19)
[2017-04-30 16:00] VITALS: BP 105/60
[2017-04-30 16:12] LABS: GLUCOMETER DEV NAME(LOC) BV2S; GLUCOSE,POINT OF CARE 105 MG/DL (70-110)
[2017-04-30] MEDS: DiphenhydrAMINE HCL 25 MG CAPSULE PO SCH (20:30)
[2017-04-30] MEDS: TraZODone HCL 100 MG TABLET PO SCH (20:30)
[2017-04-30] MEDS: CloZAPine 25 MG TABLET PO SCH (20:30)
[2017-05-01] MEDS: ZOLPIDEM TARTRATE 10 MG TABLET PO PRN (02:51)
[2017-05-01 02:53] VITALS: BP 114/78
[2017-05-01 06:22] LABS: GLUCOMETER DEV NAME(LOC) BV2S; GLUCOSE,POINT OF CARE 88 MG/DL (70-110)
[2017-05-01] MEDS: MetFORMIN HCL 500 MG TABLET PO SCH (07:02)
[2017-05-01] MEDS: LITHIUM CARBONATE 450 MG ER TABLET PO SCH ×3 (08:17→16:34)
[2017-05-01] MEDS: OMEGA-3/DHA/EPA/FISH OIL 1,000 MG CAPSULE PO SCH (08:17)
[2017-05-01] MEDS: CloZAPine 100 MG TABLET PO SCH ×2 (08:17→20:32)
[2017-05-01] MEDS: LISINOPRIL 10 MG TABLET PO SCH (08:17)
[2017-05-01] MEDS: METOPROLOL SUCCINATE 50 MG ER TABLET PO SCH (08:17)
[2017-05-01 08:19] VITALS: BP 119/72
[2017-05-01 08:30] LABS: BASOPHILS % (AUTO) 0.5 % (0.0-2.0); EOSINOPHILS % (AUTO) 0.2 % (1.0-6.0); HEMATOCRIT 35.2 % (41-53); HEMOGLOBIN 11.8 g/dL (13.5-17.5); LYMPHOCYTES # (AUTO) 2.1 K/uL (1.0-4.8); MEAN CORPUSCULAR HEMOGLOBIN 30.5 pg (26.0-34.0); MEAN CORPUSCULAR HGB CONC 33.6 G/dL (31.0-37.0); MEAN CORPUSCULAR VOLUME 91 fL (80-100); MONOCYTES # (AUTO) 1.1 K/uL (0.1-1.0); MONOCYTES % (AUTO) 7.9 % (2.0-9.0); NEUTROPHILS # (AUTO) 10.1 K/uL (1.8-7.7); NEUTROPHILS % (AUTO) 75.4 % (40.0-70.0); PLATELET COUNT (AUTO) 380 K/uL (150-450); RED BLOOD CELL COUNT(AUTO) 3.88 MIL/uL (4.50-5.90)
[2017-05-01 09:21] LABS: ALANINE AMINOTRANSFERASE 37 U/L (12-78); ALBUMIN 3.7 g/dL (3.4-5.0); ALKALINE PHOSPHATASE 79 U/L (46-116); ANION GAP 7 mmol/L (8-16); ASPARTATE AMINOTRANSFERASE 19 U/L (15-37); BILIRUBIN,TOTAL 0.4 mg/dL (0.1-1.0); CALCIUM, TOTAL 9.5 mg/dL (8.8-10.5); CARBON DIOXIDE 28 mmol/L (22-29); CHLORIDE 102 mmol/L (98-107); CREATINE KINASE MB 1.6 ng/mL (0-5); CREATINE KINASE, TOTAL 94 U/L (39-308); CREATININE 0.91 mg/dL (0.60-1.30); GLOMERULAR FILTR. RATE CALC > 60 mL/min (>60); GLUCOSE,RANDOM 89 mg/dL (70-110); POTASSIUM 4.6 mmol/L (3.5-5.1); SODIUM SERUM 137 mmol/L (136-145); TOTAL PROTEIN, SERUM 6.3 g/dL (6.4-8.2); UREA NITROGEN, BLOOD 20 mg/dL (7-18)
[2017-05-01 16:03] VITALS: BP 107/79
[2017-05-01 16:27] LABS: GLUCOMETER DEV NAME(LOC) BV2S; GLUCOSE,POINT OF CARE 132 MG/DL (70-110)
[2017-05-01] MEDS: LORazepam 2 MG TABLET PO PRN (19:04)
[2017-05-01] MEDS: CloZAPine 25 MG TABLET PO SCH (20:32)
[2017-05-01] MEDS: DiphenhydrAMINE HCL 25 MG CAPSULE PO SCH (20:32)
[2017-05-01] MEDS: TraZODone HCL 100 MG TABLET PO SCH (20:32)
[2017-05-02 01:30] VITALS: BP 112/85
[2017-05-02] MEDS: ZOLPIDEM TARTRATE 10 MG TABLET PO PRN (01:34)
[2017-05-02 06:58] LABS: GLUCOMETER DEV NAME(LOC) BV2S; GLUCOSE,POINT OF CARE 93 MG/DL (70-110)
[2017-05-02] MEDS: MetFORMIN HCL 500 MG TABLET PO SCH (07:02)
[2017-05-02] MEDS: OMEGA-3/DHA/EPA/FISH OIL 1,000 MG CAPSULE PO SCH (08:05)
[2017-05-02] MEDS: LISINOPRIL 10 MG TABLET PO SCH (08:06)
[2017-05-02] MEDS: LITHIUM CARBONATE 450 MG ER TABLET PO SCH ×3 (08:06→16:38)
[2017-05-02] MEDS: METOPROLOL SUCCINATE 50 MG ER TABLET PO SCH (08:06)
[2017-05-02] MEDS: CloZAPine 100 MG TABLET PO SCH (08:06)
[2017-05-02 08:45] VITALS: BP 127/81
[2017-05-02 16:14] VITALS: BP 109/63
[2017-05-02 16:27] LABS: GLUCOMETER DEV NAME(LOC) BV2S; GLUCOSE,POINT OF CARE 111 MG/DL (70-110)
[2017-05-02] MEDS: DiphenhydrAMINE HCL 25 MG CAPSULE PO SCH (20:29)
[2017-05-02] MEDS: TraZODone HCL 100 MG TABLET PO SCH (20:29)
[2017-05-02] MEDS ORDERED: CloZAPine 100 MG TABLET PO SCH (21:00)
[2017-05-03 06:28] LABS: GLUCOMETER DEV NAME(LOC) BV2S; GLUCOSE,POINT OF CARE 114 MG/DL (70-110)
[2017-05-03 06:56] VITALS: BP 141/77
[2017-05-03 08:15] VITALS: BP 114/69
[2017-05-03] MEDS: LITHIUM CARBONATE 450 MG ER TABLET PO SCH ×2 (08:19→12:38)
[2017-05-03] MEDS: METOPROLOL SUCCINATE 50 MG ER TABLET PO SCH (08:19)
[2017-05-03] MEDS: LISINOPRIL 10 MG TABLET PO SCH (08:19)
[2017-05-03] MEDS: CloZAPine 100 MG TABLET PO SCH (08:19)
[2017-05-03] MEDS: OMEGA-3/DHA/EPA/FISH OIL 1,000 MG CAPSULE PO SCH (08:19)
[2017-05-03] MEDS ORDERED: CLOZ100 PO ×2 (12:37→12:49)
[2017-05-03] MEDS ORDERED: LITH450CRT PO (12:49)
== END 2017-05-03 16:16 | disposition home or self-care (01) | DRG 885 ==
LOC: EMS 11:40 → B2X 19:15
PROVIDERS: ADMIT Psychiatry & Neurology Psychiatry; ATTEND Psychiatry & Neurology Psychiatry
PROC: 3E0234Z Introduction of Serum, Toxoid and Vaccine into Muscle, Percutaneous Approach (ICD-10-PCS; principal; 2017-04-14)
DX: F20.0 Paranoid schizophrenia (principal); G93.40 Encephalopathy, unspecified; M62.82 Rhabdomyolysis; R45.851 Suicidal ideations; E11.9 Type 2 diabetes mellitus without complications; D64.9 Anemia, unspecified; D72.828 Other elevated white blood cell count; E05.90 Thyrotoxicosis, unspecified without thyrotoxic crisis or storm; E78.5 Hyperlipidemia, unspecified; F41.9 Anxiety disorder, unspecified; I10 Essential (primary) hypertension; K59.00 Constipation, unspecified; Z23 Encounter for immunization; Z79.899 Other long term (current) drug therapy
CPT/HCPCS: 82306; 82607; 82746; 82962; 83036; 83605; 83735; 84439; 84443; 87040; 87081; 96365; 96366; 99285; G0480; J0696; J1200; J1630; J2060; J7060